=== PATIENT | male | born 1970 | race Caucasian/White ===

== ENCOUNTER 2016-07-13 15:23 | Inpatient (IN) | payer SELFPAY ==
[~2016-07-13] VITALS: Ht 175.3 cm; Wt 84.7 kg
[2016-07-13] MEDS ORDERED: LORTAB 10-3251 EACH PO (20:21)
[2016-07-13 23:24] VITALS: BP 171/86
[2016-07-14 01:33] LABS: METH RESISTANT S AUREUS PCR NEGATIVE (NEGATIVE)
[2016-07-14 01:34] LABS: PROBE CHECK PASS; SPECIMEN PROCESSING CONTROL PASS
[2016-07-14 04:38] VITALS: BP 169/87
[2016-07-14 07:34] VITALS: BP 144/97
[2016-07-14 11:57] VITALS: BP 158/89
[2016-07-14 15:58] VITALS: BP 160/91
[2016-07-14 20:21] VITALS: BP 178/95
[2016-07-15 00:44] VITALS: BP 179/93
[2016-07-15 04:36] VITALS: BP 168/89
[2016-07-15 07:37] LABS: EOSINOPHIL (%) 4.2 % (0-5); EOSINOPHIL COUNT 0.5 K/uL (0-0.3); HEMATOCRIT 41.2 % (38.0-50.0); IMMATURE GRANULOCYTE (%) 0.3 % (0.0-0.7); LYMPHOCYTE COUNT 2.9 K/uL (1.0-2.8); MCH 31.2 PG (29.0-34.0); MCHC 34.7 G/DL (30.0-36.0); MEAN PLAT.VOLUME 11.1 uM^3 (9.0-12.4); MONOCYTE (%) 10.5 % (3-12); MONOCYTE COUNT 1.2 K/uL (0-0.8); NEUTROPHIL (%) 59.7 % (45-76); NEUTROPHIL COUNT 7.1 K/uL (1.8-6.4); PLATELET COUNT 266 K/uL (156-360); RBC DIS.WIDTH-CV 13.3 % (11.8-14.6); RBC DIS.WIDTH-SD 43.7 % (39-53); RED BLOOD COUNT 4.58 M/uL (4.00-5.50); WHITE BLOOD COUNT 11.8 K/uL (4.1-10.2)
[2016-07-15 08:02] VITALS: BP 158/90
[2016-07-15 09:03] LABS: ANION GAP 6 MEQ/L (2-14); CHLORIDE 103 MEQ/L (99-109); POTASSIUM 4.5 MEQ/L (3.7-5.4); SAMPLE HEMOLYSIS CHECK 0; SAMPLE ICTERIC CHECK 0; SAMPLE LIPEMIA CHECK 0; SODIUM 138 MEQ/L (136-147)
[2016-07-15 09:08] LABS: GFR ESTIMATE (CALCULATED) > 59 mL/min/; GLUCOSE 105 mg/dL (70-99); UREA NITROGEN (BUN) 8 mg/dL (9-23)
[2016-07-15 13:01] VITALS: BP 150/70
[2016-07-15] MEDS ORDERED: PERCOCET 5/31 TABLET PO (13:07)
== END 2016-07-15 15:08 | disposition home or self-care (01) | DRG 494 ==
LOC: EME 15:23 → SDC 21:34 → EDOF 21:53 → 3EAST 23:16
PROVIDERS: Orthopaedic Surgery
PROC: 0QSG35Z Reposition Right Tibia with External Fixation Device, Percutaneous Approach (ICD-10-PCS; principal; 2016-07-14)
DX: S82.391A Other fracture of lower end of right tibia, initial encounter for closed fracture (principal); F17.210 Nicotine dependence, cigarettes, uncomplicated; F12.90 Cannabis use, unspecified, uncomplicated; Y93.72 Activity, wrestling
CPT/HCPCS: 73610; 73630; 76000; 80048; 85025; 87641; 99281; 99285; J0690; J1170; J2250; J2270; J2405; J3010; J7030

== ENCOUNTER 2016-08-06 12:07 | Day surgery (SDC) | payer SELFPAY ==
[~2016-08-06] VITALS: Ht 175.3 cm; Wt 74.8 kg
[~2016-08-06 12:07] MED LIST: CALCIUM + D3 E1 EACH PO; LORTAB 10-3251 EACH PO; NAPROXEN SODIU220 MG PO; PERCOCET 5/31 TABLET PO
[2016-08-06 13:10] VITALS: BP 154/89
[2016-08-06 13:54] LABS: METH RESISTANT S AUREUS PCR NEGATIVE (NEGATIVE)
[2016-08-06 14:01] LABS: PROBE CHECK PASS; SPECIMEN PROCESSING CONTROL PASS
[2016-08-06 19:52] VITALS: BP 156/85
== END 2016-08-06 20:07 | disposition home or self-care (01) ==
LOC: SDC 12:07
PROVIDERS: Orthopaedic Surgery
DX: S82.851A Displaced trimalleolar fracture of right lower leg, initial encounter for closed fracture (principal); W03.XXXA Other fall on same level due to collision with another person, initial encounter; Y99.8 Other external cause status; Y93.72 Activity, wrestling; F17.200 Nicotine dependence, unspecified, uncomplicated; Z86.14 Personal history of Methicillin resistant Staphylococcus aureus infection
CPT/HCPCS: 73600; 76000; 80306 90; 86850; 86900; 86901; 87641; C1713; J0131; J0690; J1170; J2250; J2795; J3010; J3370; J7030